=== PATIENT | female | born 1940 | race Caucasian/White ===

== ENCOUNTER 2023-10-07 10:48 | Emergency (ER) | payer MEDICARE, SELFPAY ==
--- NOTE | ~2023-10-07 | CT_ITS ---
EXAMINATION: CT HEAD WITHOUT CONTRAST CLINICAL INFORMATION: Head trauma on anticoagulation COMPARISON: None TECHNIQUE: Contiguous axial imaging was performed from the skull base to vertex without intravenous administration of contrast. This CT examination was performed using dose optimization techniques as appropriate, variously including the following: *Automated exposure control *Adjustment of mA and/or kV according to patient size (this includes techniques or standardized protocols for targeted exams where dose is matched to indication/reason for exam; i.e. extremities or head) *Use of iterative reconstruction technique DLP: 765 mGy-cm FINDINGS: There is no evidence of acute intracranial hemorrhage or territorial infarction. Chronic white matter small vessel ischemic changes. Cerebral atrophy with commensurate ventricular changes. No abnormal mass effect or midline shift is seen. Pyle to white matter differentiation is well preserved. No extra-axial fluid collections are identified. There is no abnormal attenuation within the brain parenchyma. Very slight soft tissue prominence along the right frontal bone without underlying osseous defect identified. The osseous structures and soft tissues are normal. The mastoid air cells and visualized portions of the paranasal sinuses are well aerated. CT/CT cervical spine wo IV con IMPRESSION: 1. No acute intracranial pathology. 2. Chronic white matter small vessel ischemic changes. EXAMINATION: Noncontrast CT scan of the cervical spine. INDICATION: Trauma COMPARISON: None. TECHNIQUE: Helical, multidetector axial images were obtained from the occiput to the upper thorax. Coronal and sagittal reformats of the cervical spine were provided for interpretation. DLP: 765 mGy-cm FINDINGS: No acute fractures or dislocations of the cervical spine are seen. Grade 1 anterolisthesis of C3 on C4. Straightening the normal cervical curvature. Multilevel degenerative changes. Anatomic alignment and positioning of the vertebral bodies and posterior elements is noted. The atlantoaxial joint and craniovertebral articulations are normal without evidence of subluxation. There is no prevertebral soft tissue swelling. Visualized thyroid is unremarkable. Potential consolidative focus versus atelectasis/scarring, left lung apex. IMPRESSION: 1. No acute visible fracture or dislocation. 2. Grade 1 anterolisthesis of C3 on C4. 3. Straightening the normal cervical curvature. 4. Multilevel degenerative changes. 5. Potential consolidative focus versus atelectasis/scarring, left lung apex.
[2023-10-07 10:56] VITALS: BP 174/58; PULSE 69; RESP 20; TEMP 36.7; O2SAT 98; BMI 31.4
--- NOTE | 2023-10-07 11:07 | ED.FALL ---
HPI - Fall General Chief Complaint: Fall Stated Complaint: TRIP/FALL,HIT HEAD,-LOC,,+THINNERS PER EMS Time Seen by Provider: 10/07/23 10:52 Source: patient and old records reviewed Mode of arrival: EMS Limitations: no limitations History of Present Illness ED Provider: DERRICK HPI Narrative: 83 yo female trip and fall on sidewalk hit head no LOC no other injuries. Was able to get up. Has bump on her forehead. Just happened no confusion or vomiting. Takes coumadin for afib/DVT. MD complaint: fall Onset (ago): minute(s) ([employer]) Fall from: standing Fall witnessed: yes, by bystander Place fall occurred: street Loss of consciousness: none Prolonged down time: no Symptoms prior to fall: none Context: tripped/slipped Location of injury: head Severity: mild Associated symptoms (after fall): denies Related Data Previous Rx's ?Medication ?Instructions ?Recorded cefuroxime axetil 250 mg tablet 250 mg PO BID 7 days #14 tabs 10/07/23 Allergies Allergy/AdvReac Type Severity Reaction Status Date / Time No Known Allergies Allergy Verified 10/07/23 11:00 Review of Systems Review of Systems: Constitutional : No Fever, No Chills, No Fatigue ENT/Mouth : No sore throat, No Rhinorrhea Eyes: No Eye Pain, No Swelling, No Redness Cardiovascular : No Chest Pain, No SOB, No Dyspnea on Exertion Respiratory : No Cough, No Sputum Gastrointestinal : No Nausea, No Vomiting, No Diarrhea, No abdominal Pain Genitourinary : No Dysuria, No Urinary Frequency, No Hematuria, Musculoskeletal : No joint pain, No Myalgias, No Joint Swelling Skin : No Skin Lesions, No rash Neuro : No Weakness, No Numbness, No Dizziness, positive Headache Psych : No Anxiety/Panic, No Depression Heme/Lymph: No Bruising, No Bleeding,No Lymphadenopathy Endocrine : No Polyuria, No Polydipsia All other systems reviewed and are negative PMFSH Past Medical History Attestation statement: The following information was validated with the patient. Medical History DVT (deep venous thrombosis) Hyperlipidemia Afib Social History Social History (Updated 10/07/23 @ 11:12 by Seema Bowen DO) Patient Tobacco Use Status: Never used Tobacco Advance Directives: No Advance Directives Information Provided: Yes Physical Exam Vital Signs: Vital Signs: Last Vital Signs Temp 98.1 F 10/07/23 10:56 Pulse 69 10/07/23 10:56 Resp 20 10/07/23 10:56 BP 174/58 H 10/07/23 10:56 Pulse Ox 98 10/07/23 10:56 O2 Del Method Room Air 10/07/23 10:56 BMI result Body Mass Index 31.4 Appearance: Alert. Oriented X3. No acute distress. Eyes: Pupils equal, round and reactive to light. ENT: Pharynx normal. no kim or raccoon sign has small contusion forehead Neck: Normal inspection. Neck supple. CVS: Normal heart rate and rhythm. Pulses normal. Respiratory: No respiratory distress. Breath sounds normal. Abdomen: Soft and nontender. Skin: Skin warm and dry. Normal skin color. Normal skin turgor. Extremities: No lower extremity edema. No calf ttp Neuro: Oriented X 3. No motor deficit. No sensory deficit. Medical Decision Making Medical Decision Making [facility] Narrative: 83 yo female with PMH of afib/DVT on coumadin, HLD s/p trip and fall isolated injury to forehead no LOC GCS 15 at this time given fall and age with AC therapy will obtain INR, CT head and cspine for trauma Differential Diagnosis Differential Diagnoses: The differential diagnosis associated with the presentation includes head trauma, contusion, ICH Admission/Observation Consideration of admission/observation: Escalation of care including admission/observation considered GCS 15, negative CT scan and cervical spine Lab Data [facility] Lab Attestation statement: I reviewed the patient's lab results. Labs: Lab Results 10/07/23 10/07/23 Range/Units 12:27 12:48 PT 27.6 H (11.1-13.3) SEC INR 2.3 H (0.9-1.1) Urine Color Yellow Urine Appearance Cloudy Urine pH 6.5 (5.0-9.0) Ur Specific [place] 1.010 (1.005-1.025) Urine Protein Trace (Neg-Trace) mg/dL Urine Glucose (UA) Negative (Negative) mg/dL Urine Ketones Negative (Negative) mg/dL Urine Blood Trace H (Negative) Urine Nitrite Negative (Negative) Ur Leukocyte Esterase Large (3+) H (Negative) Urine RBC 0-2 (0-2) /HPF Urine WBC >50 H (0-5) /HPF Ur Squamous Epith Cells 0-2 (0-2) /HPF Urine Bacteria 4+ (None Seen) Hyaline Casts 0-2 (0-2) /LPF Independent Interpretation I performed an independent interpretation of an: CT Scan (no ICH/fracture) Radiology Impression Discussion of test interpretation with radiology: I have reviewed the radiologist's reading. Independent Historian Clinical information obtained from an independent historian. History obtained from or confirmed by: EMS Discharge Plan Discharge Clinical Impression: Acute UTI Head injury Qualifiers: Encounter type: initial encounter Qualified Code(s): S09.90XA - Unspecified injury of head, initial encounter Patient Disposition: Home, Self-Care Instructions: Urinary Tract Infection in Women (ED), Head Injury (ED) Additional Instructions: no hemorrhage or fracture seen on CT scan INR 2.3 no acute findings at this time return for vomiting, confusion, severe headaches or any other concerns. urine has infection - take a probiotic while on antibiotic remember antibiotics can affect your INR monitor closely Prescriptions: New cefuroxime axetil 250 mg tablet 250 mg PO BID 7 Days Qty: 14 0RF Print Language: Italian
[2023-10-07 12:46] LABS: INTERNATIONAL NORM RATIO 2.3 (0.9-1.1); Prothrombin Time 27.6 SEC (11.1-13.3)
[2023-10-07 12:57] LABS: Appearance Urine Cloudy; Color Urine Yellow; Glucose Urine UA Negative (Negative); Leukocyte Esterase Urine Large (3+) (Negative); Nitrite Urine Negative (Negative); PH 6.5 (5.0-9.0); UMIC TRIGGER UACC YES; Urine Blood Trace (Negative); Urine Ketones Negative (Negative); Urine Protein Trace mg/dL (Neg-Trace)
[2023-10-07 13:00] LABS: Bacteria Urine 4+ (None Seen); Hyaline Casts Urine 0-2 /LPF (0-2); RBC Urine 0-2 /HPF (0-2); Squamous Epithelial Cell Urine 0-2 /HPF (0-2); UACC Culture Trigger YES; WBC Urine >50 /HPF (0-5)
[2023-10-07] MEDS: cefuroxime axetiL 250 MG TABLET PO (13:34)
[2023-10-07 13:40] VITALS: BP 166/69; PULSE 67; RESP 18; TEMP 36.8; O2SAT 95
== END 2023-10-07 13:41 | disposition home or self-care (01) ==
PROVIDERS: Emergency Provider Emergency Medicine; PCP Family Medicine
DX: S09.90XA Unspecified injury of head, initial encounter (principal); I48.91 Unspecified atrial fibrillation; R51.9 Headache, unspecified; R53.83 Other fatigue; W01.0XXA Fall on same level from slipping, tripping and stumbling without subsequent striking against object, initial encounter; Y93.89 Activity, other specified; Y92.480 Sidewalk as the place of occurrence of the external cause; Y99.8 Other external cause status; Z79.01 Long term (current) use of anticoagulants; Z86.718 Personal history of other venous thrombosis and embolism
CPT/HCPCS: 36415; 70450; 72125; 81001; 85610; 87086; 87088; 87186; 99282; 99284